=== PATIENT | male | born 1990 | race Hispanic/Latino ===

== ENCOUNTER 2019-12-01 07:41 | Emergency (ER) | payer OTHER ==
[2019-12-01] MEDS ORDERED: IBUPROFEN 600 MG TABLET ONE (08:23)
== END 2019-12-01 10:40 | disposition home or self-care (01) ==
LOC: EDH 07:41
DX: S20.212A Contusion of left front wall of thorax, initial encounter (principal); V49.88XA Car occupant (driver) (passenger) injured in other specified transport accidents, initial encounter; Y93.89 Activity, other specified; Y92.488 Other paved roadways as the place of occurrence of the external cause; Y99.8 Other external cause status
CPT/HCPCS: 71045